=== PATIENT | male | born 1945 | race Two or more races ===

== ENCOUNTER 2025-01-01 10:28 | Emergency (ER) | payer MEDICARE, BC, SELFPAY ==
[2025-01-01] VITALS (32 sets, daily range): BP systolic 122–159; BP diastolic 71–83; PULSE 66–90; RESP 14–31; TEMP 36.9; O2SAT 94–99
--- NOTE | 2025-01-01 11:45 | RT.EKG_ITS ---
APPROVED REPORT Exam: Resting ECG Reason for Exam: SOB Patient Location: E HR:75 bpm ECG Measurements Heart Rate 75 AXIS MI 155 P 33 QRSd 83 QRS 66 QT 341 T 44 QTc 380 Conclusion Sinus rhythm...normal P axis, V-rate 60- 99 No STEMI
[2025-01-01 12:15] LABS: Abs Immature Grans 0.01 10^3/uL (0.0-0.06); HCT 42.0 % (40.0-50.0); HGB 14.0 g/dL (13.5-17.5); Immature Grans % 0.2 %; MCH 30.7 pg (27.0-33.0); MCHC 33.3 % (32.0-36.0); MCV 92 fL (80-95); MPV 10.4 fL (8.0-11.0); Platelet Count 157 10^3/uL (130-400); RBC 4.56 10^6/uL (4.36-5.78); RDW 13.6 % (11.8-14.1); RDW-SD 46.5 fL; WBC 6.25 10^3/uL (4.4-10.8)
--- NOTE | 2025-01-01 12:20 | W.ED.GENAD ---
Discharge Plan Disposition Patient Disposition: Home Condition: Good Discharge Details Clinical Impression: Breathlessness on exertion Primary Care Provider: Jeri,Local ED Provider: Pennie Grullon Home Meds and New Rx's Prescriptions: Discontinued warfarin [Jantoven] 5 mg tablet 5 mg PO DAILY No Action lisinopril 5 mg tablet 5 mg PO DAILY levothyroxine [Levo-T] 50 mcg tablet 50 mcg PO DAILY allopurinol 300 mg tablet 300 mg PO DAILY metformin 500 mg tablet 500 mg PO DAILY alfuzosin 10 mg tablet extended release 24 hr 10 mg PO DAILY Rx Instructions: administer after the same meal each day Discharge Instructions Additional Instructions: Please follow-up with [facility] tomorrow to have your INR rechecked. Your INR today was very elevated. This puts you at risk of excessive bleeding. Please do not take your warfarin until you are advised to do so by your primary care provider. You may be switched to Eliquis when your INR normalizes. I recommend that you eat some leafy greens tonight such as spinach. Vitamin K such as leafy greens helps to decrease the INR/warfarin levels. Your workup today was otherwise reassuring. Please follow-up with primary care to have refills of your prescriptions provided. Return to emergency care if you develop new bleeding such as rectal bleeding/blood in your urine/excessive nosebleeds or if you have a head injury, develop new chest pains/difficulty breathing, episodes of passing out, or if you are very worried and need to be rechecked again immediately Referrals: Helen Rock [ NON-[facility] STAFF PHYSICIAN, Medicine] Discharge Data Discharge Date/Time-TO BE ENTERED AT DEPARTURE: 01/01/25 15:17 HPI General Date/Time Provider Initiated Documentation: 01/01/25 11:25. HPI Narrative: Lacey is an 79-year-old male who presents to the emergency department today accompanied by his for evaluation of shortness of breath with exertion. He recently traveled back from [facility], is concerned that he may have developed another blood clot in his lungs, as he has a history of PE and DVT. He is currently anticoagulated on warfarin, which was switched in the last week from Eliquis after he ran out while in [facility]. He reports he started having chest discomfort described as shortness of breath with exertion after 13-hour flight from [facility] on 12/25/2024. Symptoms unchanged over the last week, he says that this has been ongoing for a while and he has had shortness of breath with ambulation prior to this.No associated symptoms during these episodes of SOB, which resolve with rest. thinks she may hear some wheezing while he sleeps, though he denies orthopnea. Denies recent fever/chills, dizziness, congestion, sore throat, cough, sore throat, abdominal pain, nausea/vomiting, change in bowel or bladder function. PMH significant for HTN, HLD, hyperuricemia, thyroid dysfunction (no longer requiring meds), pulmonary fibrosis s/p COVID. Does not currently have a primary care provider in [place], has PCP in [facility] and another in [place]. He is willing to establish care here. Related Data Home Medications ?Medication ?Instructions ?Recorded ?Confirmed alfuzosin 10 mg tablet,extended 10 mg PO DAILY 01/01/25 01/01/25 release 24 hr allopurinol 300 mg tablet 300 mg PO DAILY 01/01/25 01/01/25 levothyroxine 50 mcg tablet 50 mcg PO DAILY 01/01/25 01/01/25 (Levo-T) lisinopril 5 mg tablet 5 mg PO DAILY 01/01/25 01/01/25 metformin 500 mg tablet 500 mg PO DAILY 01/01/25 01/01/25 Allergies Allergy/AdvReac Type Severity Reaction Status Date / Time No Known Allergies Allergy Unverified 01/01/25 10:36 General Stated Complaint: SOB MARCELINO: 3 Exam Narrative Exam Narrative: General Appearance: Normal. Alert and oriented, no acute distress Vital signs: Within normal limits. Mild hypertension noted, BP 146/83. No tachycardia, tachypnea, fever, or hypoxia. Respiratory: Work of breathing, lung sounds clear bilaterally Cardiovascular: Regular rate and rhythm, normal heart sounds. Bilateral radial pulses equal. No obvious JVD. Mild pedal edema bilaterally. Gastrointestinal: Abdomen soft, nondistended, nontender to palpation. Skin: Warm and dry, no rash. Psychiatric: Normal. Course Vital Signs Vital signs: Vital Signs Temperature 36.9 C 01/01/25 10:31 Pulse 90 01/01/25 10:31 Respiratory Rate 18 01/01/25 10:31 Blood Pressure 146/83 H 01/01/25 10:31 Pulse Oximetry 97 01/01/25 10:31 Temperature 36.9 C 01/01/25 12:19 Temperature Source Oral 01/01/25 12:19 Pulse 90 01/01/25 12:19 Respiratory Rate 18 01/01/25 12:19 Blood Pressure 146/83 H 01/01/25 12:19 Pulse Oximetry 97 01/01/25 12:19 Oxygen Delivery Method Room Air 01/01/25 12:19 Oxygen Flow Rate 0 01/01/25 12:19 Pain Level 3 01/01/25 12:19 Lab/Test Results Lab/Test Results: Laboratory Tests Range/Units 01/01/25 12:05 WBC (4.4-10.8) 10^3/uL 6.25 RBC (4.36-5.78) 10^6/uL 4.56 Hgb (13.5-17.5) g/dL 14.0 Hct (40.0-50.0) % 42.0 MCV (80-95) fL 92 MCH (27.0-33.0) pg 30.7 MCHC (32.0-36.0) % 33.3 RDW (11.8-14.1) % 13.6 Plt Count (130-400) 10^3/uL 157 MPV (8.0-11.0) fL 10.4 Immature Gran % % 0.2 Neutrophils % % 60.0 Lymphocytes % % 27.0 Monocytes % % 9.1 Eosinophils % % 3.2 Basophils % % 0.5 Nucleated RBC % (0.0-0.3) % 0.0 Absolute Neutrophils (1.2-6.7) 10^3/uL 3.75 Absolute Lymphocytes (1.2-3.4) 10^3/uL 1.69 Absolute Monocytes (0.1-0.8) 10^3/uL 0.57 Absolute Eosinophils (0.0-0.7) 10^3/uL 0.20 Absolute Basophils (0.0-0.2) 10^3/uL 0.03 Medical Decision Making Initial Assessment: 79-year-old male with dyspnea and chest discomfort post-flight. History of PE, DVT, recent switch from Eliquis to warfarin. Reports fluctuating BP, headaches, history of borderline diabetes and thyroid dysfunction. Differential Diagnosis includes but is not limited to: PE, CHF, pneumonia, effusion, obstructive process such as neoplasm, symptomatic anemia, thyroid dysfunction, electrolyte imbalance, cardiac arrhythmia ED Course: - EKG - Baseline labs - Chest x-ray Independently interpreted the following tests: EKG shows normal sinus rhythm, rate 75, no changes consistent with acute ischemia, normal intervals. INR notably elevated above therapeutic range, 8.8 today. CBC, CMP, BNP, TSH, COVID/flu/negative, and serial troponins all unremarkable. Chest x-ray shows no acute abnormalities. As patient does not have a PCP locally, I called [facility] to help patient establish care with Tammie Rock NP. I discussed case with Tammie, including importance of follow-up for reevaluation of INR with plan to transition once levels returned to normal, as well as outpatient evaluation to dyspnea on exertion, including echocardiogram. She voices agreement plan of care, will have [facility] reach out to schedule an appointment with him. Overall workup today reassuring with exception of supratherapeutic INR. Recommend eating leafy greens and reevaluation of INR to ensure normalization. No active bleeding at this time. Reviewed discharge instructions with patient and his , including PCP follow-up and red flags indicate need for return to emergency care. They voiced agreement with plan of care Clinical Impression: - SOB on exertion - Supratherapeutic INR Disposition: - Follow-Up: Regular physician for uric acid management. . Patient consented to the use of TANA PFSH All Active Problems (Updated 01/01/25 @ 14:57 by Pennie Mcrae) Breathlessness on exertion (Acute) Social History Smoking/Tobacco Use Status: Never Smoking risk assessment performed?: Yes Alcohol Intake: never Drug use: Never Substance use type: does not use Housing: house Do you feel safe at home: Yes Do you feel safe in your relationship?: Yes
[2025-01-01 12:34] LABS: ALT 30 U/L (16-63); AST 21 U/L (15-37); Albumin 3.5 g/dL (3.4-5.0); Alkaline Phosphatase 52 U/L (46-116); Anion Gap 7.2 mmol/L (3-11); BUN 21 mg/dL (7-18); Bilirubin, Total 0.5 mg/dL (0.2-1.0); CO2 28.8 mmol/L (21.0-32.0); Calcium 8.8 mg/dL (8.5-10.1); Chloride 104 mmol/L (98-107); Estimated GFR 76.08 (mL/min/1.73m2); Glucose 121 mg/dL (74-106); NT-proBNP 97 pg/mL (<300); Potassium 4.0 mmol/L (3.5-5.1); Sodium 140 mmol/L (136-145); Total Protein 6.7 g/dL (6.4-8.2); Troponin I 10 ng/L (<or=76)
[2025-01-01 12:35] LABS: COVID-19 PCR Negative (Negative); RSV PCR Negative (Negative)
[2025-01-01 12:40] LABS: Prothrombin Time 75.9 sec (9.1-11.1)
[2025-01-01 12:41] LABS: Lab Add On Test DONE
[2025-01-01 12:45] LABS: INR 8.8 (0.9-1.1)
[2025-01-01 12:46] LABS: D-Dimer 457 ng/mlFEU (<500)
[2025-01-01 13:04] LABS: TSH (W/Ref FT4) 3.41 uIU/mL (0.36-3.74)
[2025-01-01 13:19] LABS: Troponin I 10 ng/L (<or=76)
--- NOTE | 2025-01-01 13:49 | DI.RAD_ITS ---
Exam(s) XR CHEST 2V PA LATERAL EXAM: XR CHEST 2V PA LATERAL CLINICAL HISTORY: SOB w exertion TECHNIQUE: 2D digital imaging was performed. Two views. COMPARISON: No exams were available for comparison FINDINGS: Exam is limited by poor pulmonary inflation on the lateral view. HEART: Normal size. Aorta: Tortuous. PULMONARY VASCULATURE: Normal. MEDIASTINUM: Unremarkable. LUNGS: There is a linear area of atelectasis at the left lower lung field. No focal area of consolidation is seen. There are mild underlying chronic fibrotic changes. PLEURAL SPACE: No pleural effusion or pneumothorax. BONE:Unremarkable for age. SOFT TISSUES: Unremarkable. IMPRESSION: No acute abnormality. DATA REPOSITORY: RADIATION DOSE DELIVERED:
[2025-01-02 16:48] LABS: Uric Acid 7.2 mg/dL (3.5-7.2)
[2025-01-02 16:57] LABS: Hemoglobin A1C 6.7 % (<5.7)
[2025-01-02 17:08] LABS: Calculated LDL 63 mg/dL (<100); Cholesterol 151 mg/dL (<200); HDL Cholesterol 33 mg/dL (>or=40); Triglyceride 275 mg/dL (<150)
== END 2025-01-01 15:17 | disposition home or self-care (01) ==
PROVIDERS: Nurse Practitioner Family; Emergency Provider Nurse Practitioner Family
DX: R06.02 Shortness of breath (principal)
CPT/HCPCS: 99283; 99285; 36415; 80053; 80061; 87637; 93005; 71046; 83036; 83880; 84443; 84484; 84550; 85025; 85379; 85610; 93010